=== PATIENT | female | born 2000 | race Caucasian/White ===

== ENCOUNTER 2022-09-04 09:01 | Inpatient (IN) ==
[~2022-09-04 09:01] MED LIST: Haloperidol 5 mg/ml SDV IV/IM 5 MG/ML AMP ONE; LORazepam 2 mg VIAL 1 ml IV PUSH ONE; LORazepam 2 mg VIAL 1 ml ONE
[2022-09-04] MEDS ORDERED: LORazepam 2 mg VIAL 1 ml ONE (09:09)
[2022-09-04] MEDS ORDERED: Haloperidol 5 mg/ml SDV IV/IM 5 MG/ML AMP IM ONE (09:15)
[2022-09-04] MEDS ORDERED: LORazepam 2 mg VIAL 1 ml IM ONE (09:15)
[2022-09-04 10:24] LABS: Hematocrit 40.8 % (35-45); Hemoglobin 13.4 g/dL (11.5-14.3); Mean Corpuscular Hemoglobin 28.2 pg (27-33); Mean Corpuscular Hgb Conc 32.8 g/dL (31-36); Mean Corpuscular Volume 85.9 fL (80-97); Red Blood Count 4.75 10^6/uL (3.63-4.92); Red Cell Distribution Width 14.1 % (12-17); White Blood Count 6.4 10^3/uL (3.8-11.8)
[2022-09-04 10:31] LABS: ABS Eosinophils 0.1 10^3/uL (0.0-0.5); ABS Lymphocytes 1.9 10^3/uL (1.0-4.8); ABS Monocytes 0.7 10^3/uL (0.0-0.9); ABS Neutrophils 3.7 10^3/uL (1.5-7.6); ABS Nucleated RBC 0.01 10^3/ul; Eosinophil % 0.8 %; Lymphocyte % 29.4 %; Nucleated Red Blood Cells % 0.1 /100 WBC (0.0-0.4); Platelet Count Platelets clumped. 10^3/uL (150-450)
[2022-09-04 11:48] LABS: Albumin 3.9 g/dL (3.2-5.2); Anion Gap 6 mmol/L (2-16); CO2 Carbon Dioxide 27 mmol/L (22-32); Chloride 107 mmol/L (101-111); Potassium 3.7 mmol/L (3.5-5.0); Sodium 140 mmol/L (135-145)
[2022-09-04 11:55] LABS: ALT 15 U/L (7-52); AST 26 U/L (13-39); Albumin/Globulin Ratio 1.6 (1-3); Alkaline Phosphatase 55 U/L (35-149); Blood Urea Nitrogen 7 mg/dL (6-24); Creatine Kinase 231 U/L (10-223); Creatinine, Serum 0.88 mg/dL (0.51-0.95); Globulin 2.4 g/dL (2-4); Glucose 84 mg/dL (70-100); Total Protein 6.3 g/dL (6.4-8.9); eGFR CKD-EPI 95.2 (>60)
[2022-09-04 12:18] LABS: HCG Pregnancy < 0.60 mIU/mL
[2022-09-04 12:25] LABS: Lithium < 0.10 mmol/L (0.6-1.2)
[2022-09-04 12:31] LABS: Acetaminophen < 15 mcg/mL; Alcohol, S < 13 mg/dL (<13); Salicylate < 2.50 mg/dL (<30)
[2022-09-04] MEDS ORDERED: Al Hydrox/Mg Hydrox/Simet LIQ 30 ML UDC PO PRN (12:41)
[2022-09-04 12:55] LABS: TSH Ultra Thyroid Stim Horm 3.04 mcIU/mL (0.34-5.60)
[2022-09-05] MEDS: Nicotine GUM 2MG FRUIT FLAVOR PO PRN ×4 (07:42→21:22)
[2022-09-05 08:47] LABS: HDL Cholesterol 57.2 mg/dL
[2022-09-05] MEDS ORDERED: Vitamin THERAPEUTIC TAB PO SCH (09:00)
[2022-09-06] MEDS: Nicotine GUM 2MG FRUIT FLAVOR PO PRN ×3 (07:19→17:56)
[2022-09-06] MEDS ORDERED: Nicotine PATCH 14 MG/24 HR PATCH ONE (14:30)
[2022-09-07] MEDS: Nicotine GUM 2MG FRUIT FLAVOR PO PRN ×4 (08:10→21:28)
[2022-09-07] MEDS ORDERED: Nicotine PATCH 14 MG/24 HR PATCH ONE (08:10)
[2022-09-07] MEDS: Nicotine PATCH 14 MG/24 HR PATCH TRANSDERM SCH (08:13)
[2022-09-08] MEDS: Nicotine GUM 2MG FRUIT FLAVOR PO PRN ×2 (08:28→15:06)
[2022-09-08] MEDS: Nicotine PATCH 14 MG/24 HR PATCH TRANSDERM SCH (08:32)
[2022-09-09] MEDS: Nicotine PATCH 14 MG/24 HR PATCH TRANSDERM SCH (08:38)
[2022-09-09] MEDS: Nicotine GUM 2MG FRUIT FLAVOR PO PRN ×6 (08:39→21:53)
[2022-09-10] MEDS: Nicotine GUM 2MG FRUIT FLAVOR PO PRN ×3 (08:15→21:13)
[2022-09-10] MEDS: Nicotine PATCH 14 MG/24 HR PATCH TRANSDERM SCH (08:18)
[2022-09-10] MEDS ORDERED: Lithium Carbonate ER 450mg TAB PO SCH (21:00)
[2022-09-11] MEDS: Nicotine PATCH 14 MG/24 HR PATCH TRANSDERM SCH (09:25)
[2022-09-11] MEDS: Nicotine GUM 2MG FRUIT FLAVOR PO PRN ×5 (09:26→20:47)
[2022-09-12] MEDS: Nicotine GUM 2MG FRUIT FLAVOR PO PRN (07:43)
[2022-09-12] MEDS: Nicotine PATCH 14 MG/24 HR PATCH TRANSDERM SCH (08:28)
[2022-09-12 09:38] VITALS: BP 113/59
== END 2022-09-12 10:14 | disposition home or self-care (01) | DRG 753 ==
LOC: ED 09:01 → EDHOLD 12:41 → BSU 15:03
PROVIDERS: ADMIT Psychiatry & Neurology Psychiatry; ATTEND Psychiatry & Neurology Psychiatry

== ENCOUNTER 2022-09-16 13:25 | Inpatient (IN) ==
[2022-09-16 15:16] LABS: ABS Eosinophils 0.1 10^3/uL (0.0-0.5); ABS Lymphocytes 1.5 10^3/uL (1.0-4.8); ABS Monocytes 0.8 10^3/uL (0.0-0.9); ABS Nucleated RBC 0.01 10^3/ul; Eosinophil % 0.9 %; Hematocrit 40.2 % (35-45); Hemoglobin 13.4 g/dL (11.5-14.3); Lymphocyte % 17.9 %; Mean Corpuscular Hemoglobin 28.6 pg (27-33); Mean Corpuscular Hgb Conc 33.4 g/dL (31-36); Mean Corpuscular Volume 85.6 fL (80-97); Mean Platelet Volume 8.2 fL (7.5-11.2); Nucleated Red Blood Cells % 0.1 /100 WBC (0.0-0.4); Platelet Count 195 10^3/uL (150-450); Red Cell Distribution Width 13.8 % (12-17); White Blood Count 8.5 10^3/uL (3.8-11.8)
[2022-09-16 15:33] LABS: ALT 24 U/L (7-52); AST 26 U/L (13-39); Albumin 4.1 g/dL (3.2-5.2); Albumin/Globulin Ratio 1.5 (1-3); Alkaline Phosphatase 51 U/L (35-149); Anion Gap 5 mmol/L (2-16); Blood Urea Nitrogen 9 mg/dL (6-24); CO2 Carbon Dioxide 26 mmol/L (22-32); Calcium 9.3 mg/dL (8.6-10.3); Chloride 106 mmol/L (101-111); Creatinine, Serum 0.69 mg/dL (0.51-0.95); Globulin 2.7 g/dL (2-4); Glucose 138 mg/dL (70-100); Potassium 3.5 mmol/L (3.5-5.0); Sodium 137 mmol/L (135-145); Total Protein 6.8 g/dL (6.4-8.9); eGFR CKD-EPI 125.8 (>60)
[2022-09-16 15:40] LABS: HCG Pregnancy < 0.60 mIU/mL
[2022-09-16 15:44] LABS: Urine Appearance Clear; Urine Bilirubin Negative (Negative); Urine Blood Negative (Negative); Urine Color Straw; Urine Glucose Negative (Negative); Urine Ketones Negative (Negative); Urine Nitrite Negative (Negative); Urine Protein Negative (Negative); Urine Specific Gravity 1.006 (1.002-1.030); Urine Urobilinogen Negative (Negative)
[2022-09-16 16:00] LABS: Alcohol, S < 13 mg/dL (<13); Lithium 0.76 mmol/L (0.6-1.2); Salicylate < 2.50 mg/dL (<30)
[2022-09-16 16:06] LABS: Acetaminophen < 15 mcg/mL
[2022-09-16 16:06] LABS: Urine Benzodiazepine Screen None Detected (None Detect); Urine Cannabinoids Screen Presumptive Positive (None Detect); Urine Opiates Screen None Detected (None Detect)
[2022-09-16 16:14] LABS: TSH Ultra Thyroid Stim Horm 2.97 mcIU/mL (0.34-5.60)
[2022-09-16] MEDS ORDERED: Al Hydrox/Mg Hydrox/Simet LIQ 30 ML UDC PO PRN (19:54)
[2022-09-16] MEDS ORDERED: OLANZapine 10 mg TAB*ODT PO ONE (21:12)
[2022-09-16] MEDS ORDERED: OLANZapine 10 mg TAB*ODT ONE (21:12)
[2022-09-16] MEDS ORDERED: Nicotine GUM 4MG FRUIT FLAVOR PO ONE (21:32)
[2022-09-16] MEDS: Nicotine GUM 4MG FRUIT FLAVOR PO PRN (21:32)
[2022-09-17] MEDS: Nicotine GUM 4MG FRUIT FLAVOR PO PRN ×4 (09:14→21:04)
[2022-09-17] MEDS: Vitamin THERAPEUTIC TAB PO SCH (09:14)
[2022-09-18] MEDS: Vitamin THERAPEUTIC TAB PO SCH (08:37)
[2022-09-18] MEDS: Nicotine GUM 4MG FRUIT FLAVOR PO PRN ×3 (08:38→18:23)
[2022-09-19] MEDS: Vitamin THERAPEUTIC TAB PO SCH (07:32)
[2022-09-19] MEDS: Nicotine GUM 4MG FRUIT FLAVOR PO PRN ×5 (07:33→22:04)
[2022-09-20] MEDS: Nicotine GUM 4MG FRUIT FLAVOR PO PRN ×4 (08:49→17:24)
[2022-09-20] MEDS: Vitamin THERAPEUTIC TAB PO SCH (09:10)
[2022-09-21] MEDS: Nicotine GUM 4MG FRUIT FLAVOR PO PRN ×5 (07:42→20:37)
[2022-09-21] MEDS: Vitamin THERAPEUTIC TAB PO SCH (08:03)
[2022-09-21] MEDS: Nicotine PATCH 21 MG/24 HR PATCH TRANSDERM SCH (08:17)
[2022-09-22] MEDS: Nicotine GUM 4MG FRUIT FLAVOR PO PRN ×4 (09:06→20:31)
[2022-09-22] MEDS: Vitamin THERAPEUTIC TAB PO SCH (09:17)
[2022-09-22] MEDS: Nicotine PATCH 21 MG/24 HR PATCH TRANSDERM SCH (09:17)
[2022-09-23] MEDS: Vitamin THERAPEUTIC TAB PO SCH (08:37)
[2022-09-23] MEDS: Nicotine GUM 4MG FRUIT FLAVOR PO PRN ×4 (08:37→20:12)
[2022-09-23] MEDS: Nicotine PATCH 21 MG/24 HR PATCH TRANSDERM SCH (08:38)
[2022-09-24] MEDS: Vitamin THERAPEUTIC TAB PO SCH (08:32)
[2022-09-24] MEDS: Nicotine GUM 4MG FRUIT FLAVOR PO PRN ×4 (08:33→20:37)
[2022-09-24] MEDS: Nicotine PATCH 21 MG/24 HR PATCH TRANSDERM SCH (11:02)
[2022-09-25] MEDS: Vitamin THERAPEUTIC TAB PO SCH (09:06)
[2022-09-25] MEDS: Nicotine GUM 4MG FRUIT FLAVOR PO PRN ×4 (09:07→19:28)
[2022-09-25] MEDS: Nicotine PATCH 21 MG/24 HR PATCH TRANSDERM SCH (10:12)
[2022-09-26] MEDS: Vitamin THERAPEUTIC TAB PO SCH (08:44)
[2022-09-26] MEDS: Nicotine GUM 4MG FRUIT FLAVOR PO PRN ×4 (08:45→18:53)
[2022-09-27] MEDS: Vitamin THERAPEUTIC TAB PO SCH (10:34)
[2022-09-27] MEDS: Nicotine GUM 4MG FRUIT FLAVOR PO PRN ×4 (10:34→20:52)
[2022-09-27] MEDS: Nicotine PATCH 21 MG/24 HR PATCH TRANSDERM SCH (10:45)
[2022-09-28] MEDS: Vitamin THERAPEUTIC TAB PO SCH (07:41)
[2022-09-28] MEDS: Nicotine GUM 4MG FRUIT FLAVOR PO PRN ×5 (07:41→22:29)
[2022-09-28] MEDS: Nicotine PATCH 21 MG/24 HR PATCH TRANSDERM SCH (07:42)
[2022-09-29] MEDS: Nicotine GUM 4MG FRUIT FLAVOR PO PRN ×5 (08:50→20:38)
[2022-09-29] MEDS: Vitamin THERAPEUTIC TAB PO SCH (08:50)
[2022-09-29] MEDS: Nicotine PATCH 21 MG/24 HR PATCH TRANSDERM SCH ×2 (08:51→12:19)
[2022-09-30] MEDS: Nicotine PATCH 21 MG/24 HR PATCH TRANSDERM SCH (10:59)
[2022-09-30] MEDS: Vitamin THERAPEUTIC TAB PO SCH (11:01)
[2022-09-30] MEDS: Nicotine GUM 4MG FRUIT FLAVOR PO PRN ×4 (11:02→20:01)
[2022-10-01 09:04] VITALS: BP 107/61
[2022-10-01] MEDS: Vitamin THERAPEUTIC TAB PO SCH (09:27)
[2022-10-01] MEDS: Nicotine GUM 4MG FRUIT FLAVOR PO PRN (09:30)
[2022-10-01] MEDS: Nicotine PATCH 21 MG/24 HR PATCH TRANSDERM SCH (09:40)
== END 2022-10-01 10:56 | disposition home or self-care (01) | DRG 885 ==
LOC: ED 13:25 → BSU 19:15 → ED 20:00 → BSU 09-17 03:15
PROVIDERS: ADMIT Psychiatry & Neurology Psychiatry; ATTEND Psychiatry & Neurology Psychiatry